=== PATIENT | male | born 2000 | race Caucasian/White ===

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

== ENCOUNTER 2023-12-31 17:39 | Emergency (ER) | payer OTHER, BC ==
[2023-12-31 17:48] VITALS: BP 113/82; PULSE 106; RESP 20; TEMP 98.4; BMI 25.1
[2023-12-31] MEDS ORDERED: IBUPROFEN 600 MG TABLET (FP) PO ONE (18:36)
[2023-12-31] MEDS: IBUPROFEN 600 MG TABLET (FP) PO ONE (18:41)
== END 2023-12-31 19:00 | disposition home or self-care (01) ==
LOC: JERFT 17:39
DX: S40.012A Contusion of left shoulder, initial encounter (principal); W20.8XXA Other cause of strike by thrown, projected or falling object, initial encounter; Y93.01 Activity, walking, marching and hiking
CPT/HCPCS: 73030-TC-LT-FY; 99283-25